=== PATIENT | male | born 1995 | race Two or more races ===

== ENCOUNTER 2023-04-03 15:29 | Emergency (ER) | payer BC, OTHER ==
[~2023-04-03] VITALS: Ht 172.7 cm; Wt 70.0 kg
[2023-04-03] MEDS ORDERED: KETOROLAC TROMETH 30 MG/ML 1ML VIAL IV ONE (18:15)
[2023-04-03 19:30] VITALS: PULSE 84; RESP 18; O2SAT 98
[2023-04-03] MEDS ORDERED: LIDOCAINE 2%HCL (LOCAL ANESTH.) INJ 10ml MDV IJ ONE (21:15)
[2023-04-03] MEDS ORDERED: LIDOCAINE 2%HCL (LOCAL ANESTH.) INJ 20ML MDV ONE (21:24)
[2023-04-03 22:00] VITALS: BP 110/68; PULSE 83; RESP 20; O2SAT 99
[2023-04-03] MEDS ORDERED: ACETAMINOPHEN 500 MG TAB PO ONE ×2 (22:09→22:30)
[2023-04-03] MEDS ORDERED: IBUP-1456 PO (22:11)
[2023-04-03] MEDS ORDERED: ACET-1304 PO (22:11)
[2023-04-03] MEDS ORDERED: FAMO-68 PO (22:11)
[2023-04-03] MEDS ORDERED: ACETAMINOPHEN 325 MG TAB PO ONE (22:15)
== END 2023-04-03 23:24 | disposition home or self-care (01) ==
LOC: ER 15:29
DX: S52.591A Other fractures of lower end of right radius, initial encounter for closed fracture (principal); S52.611A Displaced fracture of right ulna styloid process, initial encounter for closed fracture; S63.074A Dislocation of distal end of right ulna, initial encounter; Z79.899 Other long term (current) drug therapy; X58.XXXA Exposure to other specified factors, initial encounter; Y93.23 Activity, snow (alpine) (downhill) skiing, snowboarding, sledding, tobogganing and snow tubing; Y92.89 Other specified places as the place of occurrence of the external cause; Y99.8 Other external cause status
CPT/HCPCS: 25605; 73060; 73090; 73100; 73110; 96374; 99152; 99153